=== PATIENT | male | born 2005 | race Caucasian/White ===

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

== ENCOUNTER 2025-02-06 17:33 | Emergency (ER) | payer OTHER ==
[~2025-02-06] VITALS: Ht 188 cm; Wt 90.7 kg
[2025-02-06 17:43] VITALS: BP 140/81
[2025-02-06] MEDS ORDERED: Fluorescein Sod 1MG Opth Strips RIGHTEYE ONE (17:45)
[2025-02-06] MEDS ORDERED: Tetracaine HCl/Pf 0.5% Opth Soln 4 ml RIGHTEYE ONE (17:50)
[2025-02-06] MEDS ORDERED: Ketorolac Tromethamine 30mg Vial IM ONE (18:55)
[2025-02-06] MEDS ORDERED: Fluorescein Sod 1MG Opth Strips BOTHEYES ONE (19:05)
[2025-02-06] MEDS ORDERED: CYCLOPENTOLATE 1% RIGHTEYE ONE (20:05)
[2025-02-06] MEDS ORDERED: PHENYLEPHRINE 2.5% RIGHTEYE ONE ×2 (20:05→20:20)
[2025-02-06] MEDS ORDERED: Ketorolac 0.5% Opth Soln BTL RIGHTEYE ONE (20:10)
[2025-02-06] MEDS ORDERED: OPTH RIGHTEYE ONE (20:10)
[2025-02-06] MEDS ORDERED: MOXIFLOXACIN 0.5% RIGHTEYE ONE (20:10)
== END 2025-02-06 20:53 | disposition home or self-care (01) ==
LOC: ER 17:33
DX: S05.31XA Ocular laceration without prolapse or loss of intraocular tissue, right eye, initial encounter (principal); W22.8XXA Striking against or struck by other objects, initial encounter; Z23 Encounter for immunization
CPT/HCPCS: 90471; 90715; 99283-25; A9270